=== PATIENT | female | born 1960 | race Caucasian/White ===

== ENCOUNTER 2018-12-18 20:21 | Emergency (ER) | payer SELFPAY ==
[~2018-12-18] VITALS: Ht 175.3 cm; Wt 68.0 kg
--- NOTE | 2018-12-18 21:12 | Diagnostic Imaging Report ---
FOOT LEFT COMPLETE - 3 views HISTORY: Pain. Fracture. COMPARISON: None available. FINDINGS: Bones: No acute displaced fracture. Healed fracture of the third metatarsal bone. Degenerative changes of the second metatarsophalangeal joint. Osseous alignment is within normal limits. Joints: The joint spaces are well-maintained. Soft tissues: Large calcaneal enthesophyte. Achilles enthesopathy. IMPRESSION: No acute radiographic abnormality. Signed by: Dr. Deb Vaughn M.D. on 12/18/2018 9:09 PM
[2018-12-18] MEDS ORDERED: HYDROCODONE/APAP 5MG-325MG TAB PO ONE (22:00)
[2018-12-18 22:42] VITALS: BP 135/75
== END 2018-12-18 22:40 | disposition home or self-care (01) ==
LOC: ER 20:21
DX: G89.11 Acute pain due to trauma (principal); M79.672 Pain in left foot
CPT/HCPCS: 99283

== ENCOUNTER → 2024-05-28 | Outpatient (REF) | payer OTHER | LOC: US 13:41 | PROVIDERS: ATTEND Nurse Practitioner | DX: B19.20 Unspecified viral hepatitis C without hepatic coma (principal) | CPT/HCPCS: 76700 ==

== ENCOUNTER → 2024-11-06 | Outpatient (REF) | payer OTHER ==
[~2024-11-06] MED LIST: IOPAMIDOL 370 MG/ML 100 ML INFUS..BTL INJ ONE
[2024-11-06 14:04] LABS: CREATININE, SERUM 0.78 mg/dL (0.57-1.11)
== END ==
LOC: CT 13:05
PROVIDERS: ATTEND Internal Medicine Gastroenterology
DX: K83.8 Other specified diseases of biliary tract (principal); B19.20 Unspecified viral hepatitis C without hepatic coma
CPT/HCPCS: 36415; 74160; 82565; 84520; Q9967